=== PATIENT | male | born 1965 | race Caucasian/White ===

== ENCOUNTER → 2016-10-07 | Outpatient (CLI) | payer OTHER ==
[~2016-10-07] MED LIST: FOLI1TAB16 PO; METH2.5T PO; SULF500T7 PO; VITA1TAB3 PO
[2016-10-07 09:24] LABS: ALBUMIN 3.9 g/dL (3.4-5.0); CALCIUM 9.3 mg/dL (8.5-10.1); GFR 78.5; POTASSIUM 4.2 mmol/L (3.5-5.1)
[2016-10-07 09:30] LABS: BASO # 0.1 x10^3/uL (0.0-0.2); BASO % 1 % (0-3); EOS % 3 % (0-3); HEMATOCRIT 44.8 % (39.0-53.0); HEMOGLOBIN 14.9 g/dL (13.0-17.5); LYMPH # 1.2 x10^3/uL (1.0-4.8); LYMPH % 21 % (24-48); MEAN CORPUSCULAR HEMOGLOBIN 30 pg (25-35); MEAN CORPUSCULAR HGB CONC 33 g/dL (31-37); MEAN CORPUSCULAR VOLUME 90 fL (79-100); MONO % 9 % (0-9); NEUT % 65 % (31-73); PLATELET COUNT 166 x10^3/uL (140-400); RED BLOOD COUNT 4.96 x10^6/uL (4.30-5.70); WHITE BLOOD COUNT 5.6 x10^3/uL (4.0-11.0)
[2016-10-07 09:37] LABS: PROTHROMBIN TIME PATIENT 12.8 SEC (11.7-14.0)
[2016-10-07 11:16] LABS: BILIRUBIN,URINE NEGATIVE (NEG); GLUCOSE,URINE NEGATIVE (NEG); NITRITE,URINE NEGATIVE (NEG); PROTEIN,URINE NEGATIVE (NEG-TRACE); UROBILINOGEN,URINE 0.2 mg/dL (0.2 mg/dL)
[2016-10-07 11:45] LABS: BACTERIA,URINE 0 /HPF (0-FEW); RBC,URINE 0 /HPF (0-2); SQUAMOUS EPITHELIAL CELL,UR FEW /LPF; WBC,URINE 0 /HPF (0-4)
--- NOTE | 2016-10-07 12:37 | RAD ---
Chest, 2 views, 10/07/2016: History: Preop evaluation for left hip surgery Comparison is made to a study from 05/01/2016. The heart size and pulmonary vascularity are normal. No pulmonary infiltrates are seen. There is no evidence of pleural fluid. IMPRESSION: No acute cardiopulmonary abnormality is detected.
--- NOTE | 2016-10-07 13:41 | EKG ---
[facility] [address] [place] [address] Test Date: 2016-10-07 Test Time: 11:44:36 Pat Name: RICHY GUTIERREZ Department: Room: Gender: Vertical Borer: IFEOMA : 1965 Requested By: LUKASZ VILLELA Order Number: [id number] Reading MD: Edda Randhawa Measurements Intervals Central Rate: 68 P: RI: QRS: 30 QRSD: 82 T: 58 QT: 400 QTc: 426 Interpretive Statements ATRIAL FIBRILLATION WITH A CONTROLLED VENTRICULAR RESPONSE ABNORMAL EKG RI6.01 No previous ECG available for comparison Electronically Signed On 10-09-2016 10:54:34 CDT by Edda Randhawa
== END | disposition home or self-care (01) ==
LOC: SURGPAT 14:32
PROVIDERS: ATTEND Orthopaedic Surgery
DX: Z01.818 Encounter for other preprocedural examination (principal); M16.12 Unilateral primary osteoarthritis, left hip
CPT/HCPCS: 36415; 71020; 80048; 81001; 82040; 85027; 85610; 85651; 85730; 87641; 93005

== ENCOUNTER → 2016-10-17 | Outpatient (CLI) | payer OTHER ==
[~2016-10-17] VITALS: Ht 180.3 cm; Wt 117.0 kg
[~2016-10-17] MED LIST changes: +CETI10TA22 PO; +REGADENOSON 0.4 MG/5 ML DISP.SYRIN. IV ONE
--- NOTE | 2016-10-17 21:58 | RAD ---
APPROVED REPORT Test Type: Pharmacological Stress Nurse/Tech: Sienna Conley RN Test Indications: pre-op clearance Cardiac History: see ehr Medications: see ehr Medical History: see ehr Resting ECG: SR Resting Heart Rate: 72 bpm Resting Blood Pressure: 153/98mmHg Pretest Chest Pain: None Nurse/Tech Notes Lungs CTA, S1, S2 Consent: The procedure was explained to the patient in lay terms. Informed consent was witnessed. Waqar eout was entered into [employer]. History and Stress Test performed by Naresh DolanNMildred Pharm. Details Pharmacologic stress testing was performed using 0.4mg per 5ml of regadenoson given intravenously ove r 7-10 seconds. Stress Symptoms No chest pain or symptoms. POST EXERCISE Reason for Termination: Infusion complete Max HR: 114 bpm Max Blood Pressure: 163/96mmHg Blood Pressure response to exercise: Normal blood pressure response during stress. Chest Pain: No. Arrhythmia: No. ST Change: No. INTERPRETATION Stress EKG Conclusion: No acute changes were noted. Imaging Protocol IMAGE PROTOCOL: Rest Tc-99m/stress Tc-99m 1 day Rest: Stress: Viability: Radiopharm.Tc99m ShtmmrnpgXl45x Sestamibi Dose11.9mCi 33mCi Duration 15min. 10min. Img Date 10/17/2016 10/17/2016 Inj-Img Ujdd92osm. 75min. Rest Admin Site:IV - Left WristAdministrator:KATHRINE More Stress Admin Site: IV - Left WristAdministrator: RE Addison, ARRT (R)(N) STRESS DATA End Diast. Vol.72.0mlAv. Heart Trgb126.0bpm End Syst. Vol.34.0mlCO Index BSA0.0L/min Myocardial Qure345.0gEject. Voucbcet81.0% Stress Rates Pk. Fill Rate4.52EDV/secLVtime Pk. Fill 123.40msec Pk. Empty Rate4.99ESV/secLVtime Pk. Wufoa737.34msec 07/30 Pk. Fill0.37EDV/sec Stress Scores Regional WT1.00Summed WT12.00 Regional WM0.00Summed WM7.00 LV Perf. Quant 17 Seg. SSS0.00 17 Seg. SRS1.00 17 Seg. SDS0.00 Stress Defect Extent (% LAD)0.00Rest Defect Extent (% LAD)0.00Rev. Defect Extent (% LAD)0.00 Stress Defect Extent (% LCX) 0.00Rest Defect Extent (% LCX)0.00Rev. Defect Extent (% LCX)0.00 Stress Defect Extent (% RCA)0.00Rest Defect Extent (% RCA)0.00Rev. Defect Extent (% RCA)0.00 Stress Defect Extent (% SANTI)0.00Rest Defect Extent (% SANTI)0.00Rev. Defect Extent (% SANTI)0.00 Conclusion 1. No electrocardiographic changes suggestive of myocardial ischemia with pharmacological stress. 2. No perfusion defects to suggest myocardial ischemia or scar 3. Mild diffuse decrease in wall motion and normal wall thickening with an ejection fraction of 53%. 4. Sxan indicates low risk for future cardiac events..
== END | disposition home or self-care (01) ==
LOC: NM 07:55
PROVIDERS: ATTEND Internal Medicine Cardiovascular Disease
DX: Z01.810 Encounter for preprocedural cardiovascular examination (principal); R94.31 Abnormal electrocardiogram [ECG] [EKG]
CPT/HCPCS: 78452; 93017; 96374; 96375; 96376; A9500; J2785

== ENCOUNTER 2016-10-22 05:50 | Inpatient (IN) | payer OTHER ==
[~2016-10-22] VITALS: Ht 180.3 cm; Wt 115.2 kg
[2016-10-22] VITALS (9 sets, daily range): BP systolic 110–148; BP diastolic 72–86
[~2016-10-22 05:50] MED LIST changes: -CETI10TA22 PO; -REGADENOSON 0.4 MG/5 ML DISP.SYRIN. IV ONE
[2016-10-22] MEDS ORDERED: CELECOXIB 200 MG CAPSULE PO PRN (06:00)
[2016-10-22] MEDS ORDERED: HYDROCODONE/APAP 7.5/325MG TABLET. PO PRN (06:00)
[2016-10-22] MEDS ORDERED: CEFAZOLIN 2GM PREMIX 50 ML IV PRN (06:00)
[2016-10-22] MEDS ORDERED: TRANEXAMIC ACID 1,000 MG in IV NS 50ML -- 1ST BAG INJ ONE (06:00)
[2016-10-22] MEDS ORDERED: CETI10TA22 PO (06:42)
[2016-10-22] MEDS ORDERED: FENTANYL PF 100 MCG/2 ML VIAL. IV PRN ×3 (07:00→08:00)
[2016-10-22] MEDS ORDERED: PROCHLORPERAZINE 10 MG/2 ML VIAL. IV PRN ×2 (07:00→08:00)
[2016-10-22] MEDS ORDERED: LIDOCAINE 1% 1 ML SYRINGE. ID PRN (07:00)
[2016-10-22] MEDS ORDERED: HYDROMORPHONE 2 MG/ML VIAL. IV PRN (07:00)
[2016-10-22] MEDS ORDERED: ONDANSETRON PF 4 MG/2 ML VIAL. IV PRN (07:00)
[2016-10-22] MEDS ORDERED: IV RINGERS,LACTATED 1000ML 1,000 ML IV SCH (07:00)
[2016-10-22] MEDS ORDERED: MORPHINE SULFATE 2 MG/ML DISP.SYRIN. IV PRN ×2 (07:00→08:00)
[2016-10-22] MEDS ORDERED: DEXAMETHASONE SOD PHOS 20 MG/5 ML VIAL. ONE (07:09)
[2016-10-22] MEDS ORDERED: LIDOCAINE 2% 100 MG/5 ML DISP.SYRIN. ONE (07:09)
[2016-10-22] MEDS ORDERED: PROPOFOL 20 ML IV ONE (07:09)
[2016-10-22] MEDS ORDERED: FENTANYL PF 100 MCG/2 ML VIAL. ONE (07:09)
[2016-10-22] MEDS ORDERED: ONDANSETRON PF 4 MG/2 ML VIAL. ONE (07:09)
[2016-10-22] MEDS ORDERED: FAMOTIDINE 20 MG/2 ML VIAL ONE (07:09)
[2016-10-22] MEDS ORDERED: ROCURONIUM 50 MG/5 ML VIAL. ONE (07:09)
[2016-10-22 07:16] LABS: PROTHROMBIN TIME PATIENT 12.8 SEC (11.7-14.0)
[2016-10-22] MEDS ORDERED: SUCCINYLCHOLINE 200 MG/10 ML VIAL. ONE (07:36)
[2016-10-22] MEDS ORDERED: MORPHINE SULFATE 10 MG/ML VIAL. ONE (07:51)
[2016-10-22] MEDS ORDERED: 0.9 % SODIUM CHLORIDE 50 ML VIAL. IJ ONE ×2 (07:53→08:36)
[2016-10-22] MEDS: TV=100ml MORPHINE 5 MG, KETOROLAC 30 MG, ROPIVacaine 0.5% PF 60 ML, EPINEPH... INT ART ONE ×10 (07:57→08:06)
[2016-10-22] MEDS ORDERED: OXYCODONE/APAP 7.5/325 TABLET. PO PRN (08:00)
[2016-10-22] MEDS: FERROUS SULFATE 325 MG TABLET PO SCH ×2 (08:00→16:54)
[2016-10-22] MEDS ORDERED: ACETAMINOPHEN 325 MG TABLET. PO PRN (08:00)
[2016-10-22] MEDS ORDERED: MORPHINE SULFATE 10 MG/ML VIAL. IV PRN (08:00)
[2016-10-22] MEDS ORDERED: DIPHENHYDRAMINE 50 MG/ML VIAL IV PRN (08:00)
[2016-10-22] MEDS ORDERED: OXYCODONE/APAP 5/325 TABLET. PO PRN (08:00)
[2016-10-22] MEDS ORDERED: ZOLPIDEM 5 MG TABLET. PO PRN (08:00)
[2016-10-22] MEDS ORDERED: TRAMADOL 50 MG TABLET. PO PRN ×2 (08:00)
[2016-10-22] MEDS ORDERED: CALCIUM CARBONATE 500 MG TAB.CHEW PO PRN (08:00)
[2016-10-22] MEDS ORDERED: TRANEXAMIC ACID 1,000 MG in IV NS 50ML -- 2ND BAG INJ ONE (08:00)
[2016-10-22] MEDS ORDERED: DEXTROSE 50% 25 GM / 50ML DISP.SYRIN. IV PRN (08:00)
[2016-10-22] MEDS ORDERED: MORPHINE SULFATE 4 MG/ML DISP.SYRIN. IV PRN ×2 (08:00)
[2016-10-22] MEDS ORDERED: 0.9 % SODIUM CHLORIDE 10 ML DISP.SYRIN. IV PRN (08:00)
--- NOTE | 2016-10-22 08:28 | HP ---
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 HISTORY OF PRESENT ILLNESS: The patient has a longstanding history of left hip pain and leg length discrepancy ever since childhood. He has compensated well up to about 5 years ago when he was diagnosed with rheumatoid arthritis. He reports about a 70-pound weight gain between that diagnosis and the present time. Initially it was poorly controlled, but more recently had a little better response based on clinical results and blood work. 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 He says the left hip hurts him very severely, worse on startup, better once he gets going for a little bit, worse with more extended activity, aching afterward. PAST MEDICAL HISTORY: Significant for rheumatoid arthritis and DJD. PAST SURGICAL HISTORY: Significant for a biceps tendon repair, carpal tunnel surgery, appendectomy, thumb surgery, and elbow nerve translocation. FAMILY HISTORY: Denies any significant family history. SOCIAL HISTORY: Denies smoking. Very occasional alcohol use. Denies drug use. MEDICATIONS: Include methotrexate, folic acid, Sulfazine. ALLERGIES: He has no known drug allergies. REVIEW OF SYSTEMS: Denies chest pain, fever, chills, radiating pain, focal weakness, numbness, tingling, visual changes, change in bowel or bladder function. PHYSICAL EXAMINATION: VITAL SIGNS: Per his admission sheet. HEENT: Atraumatic, normocephalic. HEART: Regular rate and rhythm. LUNGS: Clear to auscultation bilaterally. ABDOMEN: Benign. EXTREMITIES: Examination of the left hip reveals a short leg length about an inch. Pain on any range of motion especially on extremes. No instability present. He has normal motion of the contralateral hip, bilateral knees and ankles, with intact motor function, distal pulses, sensation, reflexes, skin in both upper extremities throughout. IMAGING: X-rays show hip dysplasia on the left with severe degenerative changes. ASSESSMENT: 1. Left hip pain. 2. Congenital dysplasia, left hip. 3. Left hip degenerative and rheumatoid arthritis. 4. Rheumatoid arthritis. 5. BMI 35 history. TREATMENT PLAN: We had talked previously about his operative and nonoperative treatment options, a cane for support. His symptoms really in severity are beyond that. He is unable to tolerate narcotic pain medications which give him stomach upset and constipation and he would rather have the problem fixed to go on with his business and active lifestyle. We talked through risks, benefits, postoperative course of total hip arthroplasty including the possibility of continued leg length discrepancy, nerve or blood vessel damage, particularly symptoms due to stretch of the sciatic nerve if we lengthened his leg significantly; possibility of instability, infection, premature wear or loosening, medical or other anesthetic complications including blood clots among others. All his questions were answered. Consent was obtained and he agrees to proceed with total hip arthroplasty with [facility] admission to follow. LUKASZ VILLELA MD DR: GRACIELA/terrell JOB#: [id number] / [id number]
[2016-10-22] MEDS ORDERED: PHENYLEPHRINE in 0.9% NACL PF 1 MG/10 ML DISP.SYRIN. IV ONE (08:37)
[2016-10-22] MEDS ORDERED: SEVOFLURANE > 120 MINUTES. IH ONE (08:48)
[2016-10-22] MEDS ORDERED: VECURONIUM BOLUS 10 MG VIAL. IV ONE (08:59)
[2016-10-22] MEDS: SENNOSIDES/DOCUSATE 8.6/50MG TABLET. PO SCH (09:00)
[2016-10-22] MEDS: FOLIC ACID 1 MG TABLET PO SCH (09:00)
[2016-10-22] MEDS: MULTIVITAMIN with MINERAL TABLET. PO SCH (09:00)
[2016-10-22] MEDS ORDERED: NEOSTIGMINE METHYLSULFATE 5 MG/5 ML SYRINGE. ONE (09:49)
[2016-10-22] MEDS ORDERED: GLYCOPYRROLATE 1 MG/5 ML VIAL. ONE (09:49)
--- NOTE | 2016-10-22 10:19 | RAD ---
EXAM: Left hip, 2 views. HISTORY: Arthroplasty. COMPARISON: 08/26/2016. FINDINGS: 2 views of the left hip are obtained. There is a left hip arthroplasty in expected position. There is shunting soft tissue gas due to recent surgery. IMPRESSION: Left hip arthroplasty in expected position.
--- NOTE | 2016-10-22 10:30 | PDOC ---
BRIEF OPERATIVE NOTE Date: Oct 22, 2016 Pre-Op Diagnosis djd and congenital deformity left hip Post-Op Diagnosis same Procedure Performed left total hip arthroplasty Surgeon Artur Anesthesia Type: General Blood Loss 150cc Specimens Obtained femoral head to pathology Findings above Complications none LUKASZ VILLELA MD Oct 22, 2016 10:30
[2016-10-22] MEDS: FENTANYL PF 100 MCG/2 ML VIAL. IV PRN ×2 (10:53→11:06)
--- NOTE | 2016-10-22 11:12 | RAD ---
Pelvis with left hip, 2 views, 10/22/2016: History: Postop evaluation Views of the lower pelvis and left hip were obtained in 2 projections. A left hip prosthesis is now in place and appears to be in satisfactory position. A surgical drain overlies the operative site. There is no evidence of a retained surgical instrument, needle or radiopaque sponge on these views. IMPRESSION: No significant postoperative abnormality is detected.
--- NOTE | 2016-10-22 14:04 | OP ---
DATE OF SURGERY: 10/22/2016 PREOPERATIVE DIAGNOSES: Degenerative joint disease of left hip and congenital dysplasia of left hip. POSTOPERATIVE DIAGNOSES: Degenerative joint disease of left hip and congenital dysplasia of left hip. PROCEDURE: Left total hip arthroplasty. SURGEON: Ishan Siddiqui MD. DETECTIVE BUREAU CHIEF: [employer]. ANESTHESIA: General. ESTIMATED BLOOD LOSS: 150 mL. COMPLICATIONS: None. FINDINGS: Include severe wear of the femoral head, it was essentially mushroom in shape. Femoral head was sent to pathology for evaluation. OPERATIVE INDICATIONS: The patient is a 51-year-old male with congenital dysplasia of his hip and a leg length discrepancy, longstanding in nature, of about an inch. He stated that that was tolerated better until he developed more rheumatoid arthritis symptoms within the last several years and has been very limited in his activities of daily living as described in his preoperative history and physical included in the previous clinic notes. I had gone over with him additional nonoperative and operative treatment measures as well as risks, benefits, postoperative course of the procedure of total hip arthroplasty including the possibility of infection, nerve or blood vessel damage, premature wear or loosening, medical or other anesthetic complications among others. All his questions were answered. He wants to proceed with surgical evaluation and treatment. DESCRIPTION OF PROCEDURE: The patient was identified, procedure verified, patient placed in the supine position on the operating table. After adequate amounts of general endotracheal anesthesia were administered, he was placed in the decubitus position, left side up. All bony prominences were well padded and he was positioned using the Stulberg hip positioner. After timeout was performed, the patient and procedure identified and verified. The posterior approach was carried out to the left hip with a curvilinear incision centered over the greater trochanter down to the iliotibial band and gluteal fascia, both of which were split in line with their fibers. A reference pin was placed in the pelvis to measure offset and leg length. The Charnley retractor was then placed. The external rotators were detached at their insertion and hip capsule was split in a T-fashion and the hip was dislocated. Femoral head was very deformed, devoid of any cartilage. It was shaped more like a mushroom than a ball and very large, it actually measured about 68 at its greatest diameter. Acetabulum was then exposed. Any remaining labral tissue was excised and the acetabulum was very flat, narrow and dysplastic. Reaming was carried out starting at a size 48, working up, and my main concern was preserving the anterior and posterior wall, which were well preserved, reaming up to a size 60. There was a small superior lip remaining, but did not want to go further with the compromise of the posterior wall. Reaming was carried out to the inner shelf of the acetabulum initially and increased. A Continuum acetabular shell, size 62, was then placed in proper position and version based on his anatomy with a standard trial 40 mm liner after a 30-mm screw was placed superiorly with an excellent bite. Next, attention was turned to the femur where the femoral head had been cut at the calcar with a size 5 Avenir broach for reference, which had been templated preoperatively. Excess cement was removed laterally to optimize position and broaching was carried out through a size 5, which was found to have excellent fit and stability. Initially a -3.5 trial head was used, but with a +0 head, I was actually able to restore his leg length almost completely with excellent stability to about 90 degrees of flexion with about 65-70 degrees of internal rotation before dislocation. Offset was maintained, leg length increased by a little over 2 cm per the reference guide. An AP pelvis was shot as well for reference, just to verify positioning and placement and leg lengths, nearly equal on that intraoperative film. Trial components were removed. Thorough irrigation carried out with normal saline solution. A vitamin E 40 mm inner diameter standard liner was impacted into place. A 5 standard Avenir stem likewise impacted into place and set to equivalent where the broach was as expected. A +0 ceramic 40 mm head was impacted in place to engage the Alarcon taper and was reduced with equivalent stability as described above. Thorough irrigation again carried out with normal saline solution. External rotators were reattached. Hip capsule was repaired with #5 Ethibond suture. Hemovac drain and pain catheter were placed. The tissues were infused with pain catheter mixture. The fascia was closed with #5 Ethibond in interrupted fashion, reinforced with #1 Vicryl in a running fashion. Subcutaneous closure with layered Vicryl suture and subcuticular closure with Monocryl suture. Steri-Strips and Mastisol, sterile dressings were applied. The patient was extubated and transferred to postop holding in stable condition having tolerated the procedure well. Please note that Jodi Jones, [employer], was present for the procedure and assisted in the prep and drape exposure and the subcutaneous and subcuticular portion of the closure. ISHAN SIDDIQUI MD DR: GRACIELA/terrell JOB#: [id number] / [id number]
[2016-10-22] MEDS: IV DEXTROSE 5 %-0.45 % NACL 1,000 ML IV SCH ×2 (14:05→22:00)
[2016-10-22] MEDS: CEFAZOLIN 2GM PREMIX 50 ML IV SCH ×2 (14:07→20:00)
[2016-10-22] MEDS ORDERED: WARFARIN 7.5 MG TABLET. PO ONE (16:00)
[2016-10-22] MEDS: KETOROLAC TROMETHAMINE 30 MG, BUPIVACAINE MPF 0.25% 20 ML, EPINEPHRINE 0.5 MG in TOTAL ... INT ART SCH (17:55)
[2016-10-22] MEDS: SULFASALAZINE 500 MG TABLET PO SCH (21:01)
[2016-10-22] MEDS: HYDROCODONE/APAP 7.5/325MG TABLET. PO PRN (21:01)
[2016-10-22] MEDS: CELECOXIB 200 MG CAPSULE PO SCH (21:01)
[2016-10-23] MEDS: CEFAZOLIN 2GM PREMIX 50 ML IV SCH (02:00)
[2016-10-23 02:52] VITALS: BP 119/72
[2016-10-23 05:27] LABS: HEMATOCRIT 35.2 % (39.0-53.0); HEMOGLOBIN 11.4 g/dL (13.0-17.5); RED BLOOD COUNT 3.85 x10^6/uL (4.30-5.70)
[2016-10-23 05:58] LABS: INR 1.3 (0.8-1.1); PROTHROMBIN TIME PATIENT 15.4 SEC (11.7-14.0)
[2016-10-23] MEDS: KETOROLAC TROMETHAMINE 30 MG, BUPIVACAINE MPF 0.25% 20 ML, EPINEPHRINE 0.5 MG in TOTAL ... INT ART SCH (06:00)
[2016-10-23] MEDS ORDERED: MAGNESIUM HYDROXIDE 2,400 MG/30 ML ORAL.SUSP. PO PRN (06:00)
[2016-10-23 06:13] VITALS: BP 128/77
[2016-10-23] MEDS: IV DEXTROSE 5 %-0.45 % NACL 1,000 ML IV SCH ×2 (08:00→18:00)
[2016-10-23] MEDS: SENNOSIDES/DOCUSATE 8.6/50MG TABLET. PO SCH (08:50)
[2016-10-23] MEDS: CELECOXIB 200 MG CAPSULE PO SCH ×2 (08:50→20:56)
[2016-10-23] MEDS: HYDROCODONE/APAP 7.5/325MG TABLET. PO PRN ×2 (08:50→12:22)
[2016-10-23] MEDS: FOLIC ACID 1 MG TABLET PO SCH (08:50)
[2016-10-23] MEDS: FERROUS SULFATE 325 MG TABLET PO SCH ×2 (08:51→16:59)
[2016-10-23] MEDS: MULTIVITAMIN with MINERAL TABLET. PO SCH (08:51)
[2016-10-23] MEDS: SULFASALAZINE 500 MG TABLET PO SCH ×2 (08:52→20:56)
[2016-10-23] MEDS ORDERED: BISACODYL 10 MG SUPP.RECT. PR PRN (16:00)
[2016-10-23] MEDS ORDERED: WARFARIN 4 MG TABLET. PO ONE (16:00)
[2016-10-23] MEDS: HYDROCODONE/APAP 10/325 TABLET. PO PRN ×2 (16:58→20:57)
--- NOTE | 2016-10-23 17:41 | PDOC ---
PROGRESS NOTES Subjective Subjective Problems overnight: Patient feels excellent minimal pain well-controlled very pleased with his ability to get up and around no complaints Objective Vital Signs Vital Signs Date Time Temp Pulse Resp B/P Pulse Ox O2 Delivery O2 Flow Rate FiO2 10/23/16 16:58 96 Room Air 10/23/16 12:22 2.0 10/23/16 06:13 98.3 73 18 128/77 98.3 Physical Exam On exam leg lengths are clinically equal distal neurovascular status intact he has excellent range of motion Labs Laboratory Tests Test 10/22/16 06:35 10/23/16 04:48 Prothrombin Time 12.8SEC (11.7-14.0) 15.4SEC (11.7-14.0) Prothromb Time International Ratio 1.0 (0.8-1.1) 1.3 (0.8-1.1) Activated Partial Thromboplast Time 34SEC (24-38) White Blood Count 12.0x10^3/uL (4.0-11.0) Red Blood Count 3.85x10^6/uL (4.30-5.70) Hemoglobin 11.4g/dL (13.0-17.5) Hematocrit 35.2% (39.0-53.0) Mean Corpuscular Volume 92fL (79-100) Mean Corpuscular Hemoglobin 30pg (25-35) Mean Corpuscular Hemoglobin Concent 32g/dL (31-37) Red Cell Distribution Width 15.0% (11.5-14.5) Platelet Count 134x10^3/uL (140-400) Laboratory Tests Test 10/23/16 04:48 White Blood Count 12.0x10^3/uL (4.0-11.0) Red Blood Count 3.85x10^6/uL (4.30-5.70) Hemoglobin 11.4g/dL (13.0-17.5) Hematocrit 35.2% (39.0-53.0) Mean Corpuscular Volume 92fL (79-100) Mean Corpuscular Hemoglobin 30pg (25-35) Mean Corpuscular Hemoglobin Concent 32g/dL (31-37) Red Cell Distribution Width 15.0% (11.5-14.5) Platelet Count 134x10^3/uL (140-400) Prothrombin Time 15.4SEC (11.7-14.0) Prothromb Time International Ratio 1.3 (0.8-1.1) Imaging Postop x-rays show excellent positioning of the total hip arthroplasty with essentially equal leg lengths Assessment Assessment POD# [1], S/P [total hip arthroplasty] Problems: Plan Plan of Care Continue mobilize with physical therapy weightbearing as tolerated standard total hip precautions He's doing extremely well I did give him an option of possible early discharge tomorrow if desired and is physical therapy continues to go well Likely outpatient physical therapy on discharge LUKASZ VILLELA MD Oct 23, 2016 17:41
[2016-10-23 18:21] VITALS: BP 132/82
[2016-10-24] MEDS: IV DEXTROSE 5 %-0.45 % NACL 1,000 ML IV SCH (04:00)
[2016-10-24 05:11] LABS: HEMATOCRIT 33.8 % (39.0-53.0); HEMOGLOBIN 11.2 g/dL (13.0-17.5)
[2016-10-24 05:22] LABS: INR 1.5 (0.8-1.1); PROTHROMBIN TIME PATIENT 17.3 SEC (11.7-14.0)
[2016-10-24] MEDS ORDERED: FENTANYL PF 100 MCG/2 ML VIAL. IV PRN ×2 (05:33)
[2016-10-24] MEDS ORDERED: ACETAMINOPHEN 325 MG TABLET. PO PRN (05:34)
[2016-10-24 05:45] VITALS: BP 129/73
[2016-10-24] MEDS: FERROUS SULFATE 325 MG TABLET PO SCH ×2 (08:02→16:37)
[2016-10-24] MEDS: SULFASALAZINE 500 MG TABLET PO SCH ×2 (08:03→20:18)
[2016-10-24] MEDS: SENNOSIDES/DOCUSATE 8.6/50MG TABLET. PO SCH (08:03)
[2016-10-24] MEDS: CELECOXIB 200 MG CAPSULE PO SCH ×2 (08:03→20:18)
[2016-10-24] MEDS: FOLIC ACID 1 MG TABLET PO SCH (08:03)
[2016-10-24] MEDS: MULTIVITAMIN with MINERAL TABLET. PO SCH (08:04)
[2016-10-24] MEDS: HYDROCODONE/APAP 7.5/325MG TABLET. PO PRN ×3 (08:04→16:37)
[2016-10-24] MEDS ORDERED: CELECOXIB 200 MG CAPSULE. ONE ×2 (08:12→19:09)
--- NOTE | 2016-10-24 12:53 | PATHOLOGY ---
PATHOLOGY REPORT * * * * * * * * FINAL DIAGNOSIS: "Left hip bone and tissue", removal: - Degenerative osteoarthritis. - Bone marrow with focal trilineage hematopoiesis. (SKM:swati; d/t: 10/24/2016) REPORT ELECTRONICALLY SIGNED BY: Alycia Gamboa M.D. DATE/TIME: 10/24/2016 12:51 * * * * * * * * GROSS PATHOLOGY: Received in formalin labeled "Richy Alcocer left hip bone and tissue," is a femoral head measuring 6.6 x 6.5 x 3.5 cm in greatest dimensions. The articular surface is light gay and smooth to granular in appearance with severe osteophytic lipping, however, eburnation is not grossly identified. Sectioning the bone reveals light gay cut surfaces. Also received within the specimen container are additional fragments of light gay bone admixed with soft tissue measuring 8.6 x 7.9 x 2.9 cm in aggregate dimensions. Equipment Service Associate tissue is submitted in cassette A1, following decalcification. (CAA; 10/23/2016) INITIAL CPT CODE(S): A; 01670, 48609 Professional services [place] [address] Technical services performed by [facility] at [address] [place] [address]. SPECIMEN(S) RECEIVED: A.Left hip bone and tissue CLINICAL HISTORY: Left hip dysplasia and DJD PATIENT: RICHY ALCOCER /AGE: 12 1965 (Age: 51) PATIENT #: [id number] ALT CASE #: SPECIMEN COLLECTION DATE: 10/22/2016 SPECIMEN RECEIVED DATE: 10/22/2016 [facility] - [address] [place] [address] - PHONE: [phone] * * * END OF REPORT * * *
[2016-10-24] MEDS ORDERED: BISACODYL 10 MG SUPP.RECT. PR PRN (14:30)
[2016-10-24] MEDS ORDERED: MAGNESIUM HYDROXIDE 2,400 MG/30 ML ORAL.SUSP. PO PRN (14:30)
--- NOTE | 2016-10-24 15:27 | PDOC ---
ORTHO PROGRESS NOTES Subjective Erick is doing well. Pain controlled. Complains of some constipation. Doing well with therapy. Denies chest pain, shortness of breath or numbness and tingling Post-op Day: 2 (Left SANDRA) Vitals Vital Signs Date Time Temp Pulse Resp B/P Pulse Ox O2 Delivery O2 Flow Rate FiO2 10/24/16 08:20 Room Air 10/24/16 05:45 98.5 75 20 129/73 94 98.5 10/23/16 12:22 2.0 Labs Laboratory Tests Test 10/23/16 04:48 10/24/16 05:00 White Blood Count 12.0x10^3/uL (4.0-11.0) Red Blood Count 3.85x10^6/uL (4.30-5.70) Hemoglobin 11.4g/dL (13.0-17.5) 11.2g/dL (13.0-17.5) Hematocrit 35.2% (39.0-53.0) 33.8% (39.0-53.0) Mean Corpuscular Volume 92fL (79-100) Mean Corpuscular Hemoglobin 30pg (25-35) Mean Corpuscular Hemoglobin Concent 32g/dL (31-37) 33g/dL (31-37) Red Cell Distribution Width 15.0% (11.5-14.5) Platelet Count 134x10^3/uL (140-400) Prothrombin Time 15.4SEC (11.7-14.0) 17.3SEC (11.7-14.0) Prothromb Time International Ratio 1.3 (0.8-1.1) 1.5 (0.8-1.1) Laboratory Tests Test 10/24/16 05:00 Hemoglobin 11.2g/dL (13.0-17.5) Hematocrit 33.8% (39.0-53.0) Mean Corpuscular Hemoglobin Concent 33g/dL (31-37) Prothrombin Time 17.3SEC (11.7-14.0) Prothromb Time International Ratio 1.5 (0.8-1.1) Notes Patient is awake alert sitting up in chair. Breathing unlabored, no acute distress. Incision covered with dressing, no drainage. Mild edema. Neurovascular intact bilateral lower extremity Problems: (1) Degenerative joint disease of left hip Assessment and Plan Continue PT OT, weightbearing as tolerated Anticoagulation per pharmacy Pain controlled Anticipate discharge tomorrow Problem Qualifiers (1) Degenerative joint disease of left hip: Osteoarthritis type: primary Qualified Code: M16.12 - Unilateral primary osteoarthritis, left hip BAKARI SANTOS APRN Oct 24, 2016 15:27
[2016-10-24] MEDS ORDERED: WARFARIN 3 MG TABLET. PO ONE (16:00)
[2016-10-24 19:24] VITALS: BP 130/79
[2016-10-25] MEDS ORDERED: DIPHENHYDRAMINE 50 MG/ML VIAL. IV PRN (05:31)
[2016-10-25 05:47] LABS: INR 1.5 (0.8-1.1); PROTHROMBIN TIME PATIENT 17.1 SEC (11.7-14.0)
[2016-10-25 06:41] VITALS: BP 113/79
[2016-10-25] MEDS: FERROUS SULFATE 325 MG TABLET PO SCH (08:00)
[2016-10-25] MEDS ORDERED: FOLIC ACID 1 MG TABLET. ONE (08:17)
[2016-10-25] MEDS: SULFASALAZINE 500 MG TABLET PO SCH (08:20)
[2016-10-25] MEDS: HYDROCODONE/APAP 7.5/325MG TABLET. PO PRN (08:21)
[2016-10-25] MEDS: FOLIC ACID 1 MG TABLET PO SCH (08:21)
[2016-10-25] MEDS: SENNOSIDES/DOCUSATE 8.6/50MG TABLET. PO SCH (08:21)
[2016-10-25] MEDS: MULTIVITAMIN with MINERAL TABLET. PO SCH (08:23)
[2016-10-25] MEDS ORDERED: CELECOXIB 200 MG CAPSULE. PO SCH (09:00)
[2016-10-25 09:14] LABS: HEMATOCRIT 33.3 % (39.0-53.0); HEMOGLOBIN 10.9 g/dL (13.0-17.5)
[2016-10-25] MEDS ORDERED: WARFARIN 5 MG TABLET. PO ONE (14:00)
[2016-10-25] MEDS ORDERED: FERR-26 PO (15:44)
[2016-10-25] MEDS ORDERED: HYDR-2762 PO (15:45)
[2016-10-25] MEDS ORDERED: WARF5TAB7 PO (15:46)
[2016-10-25 16:20] VITALS: BP 146/88
--- NOTE | 2016-10-26 16:50 | DS ---
DATE OF DISCHARGE: 10/25/2016 PRINCIPAL DIAGNOSIS: Left hip DJD and dysplasia. DISCHARGE MEDICATIONS: Include [place] 7.5/325 one p.o. q. 6 hours p.r.n. pain, Coumadin as directed by anticoagulation clinic, resume home medications. ACTIVITY: Weightbearing as tolerated. Standard total hip precautions. Keep incision clean and dry, may shower as long as dressing is intact. Follow up with Dr. Siddiqui in 2 weeks. BRIEF DESCRIPTION OF HOSPITAL COURSE: The patient underwent an uncomplicated left total hip arthroplasty. Despite equalizing his leg lengths, no neurologic complications or paresthesia or weakness whatsoever. He actually got up and around well with physical therapy postop day #0 and #1. He was a bit more sore on postop day #2 as expected. Vital signs and laboratory exams remained good with a hemoglobin of 11. He was performing his activities of daily living well, pain well controlled, and on postop day #3 was discharged to home with planned outpatient physical therapy. LUKASZ SIDDIQUI MD DR: GRACIELA/terrell JOB#: [id number] / [id number]
[2016-10-27] MEDS ORDERED: METHOTREXATE SODIUM 2.5 MG TABLET PO SCH (16:00)
== END 2016-10-25 16:30 | disposition home or self-care (01) | DRG 470 ==
LOC: OPSVCIP 05:50 → OBSVTOIN 07:57 → 4 SOUTHEST 11:45
PROVIDERS: ADMIT Orthopaedic Surgery; ATTEND Orthopaedic Surgery
PROC: 0SRB039 Replacement of Left Hip Joint with Ceramic Synthetic Substitute, Cemented, Open Approach (ICD-10-PCS; principal; 2016-10-22 07:30)
DX: M16.12 Unilateral primary osteoarthritis, left hip (principal); M06.9 Rheumatoid arthritis, unspecified; K59.00 Constipation, unspecified; Q65.89 Other specified congenital deformities of hip; Z68.35 Body mass index [BMI] 35.0-35.9, adult
CPT/HCPCS: 36415; 73501; 85014; 85018; 85027; 85610; 85730; 86850; 86900; 86901; G0378; G0379; J0171; J0330; J0690; J0780; J1100; J1885; J2270; J2370; J2405; J2704; J2710; J2795; J3010; J3490; J7030; J7120; S0028; 97116; 97150; 97530; 97535

== ENCOUNTER 2018-03-10 08:29 | Day surgery (SDC) | payer OTHER ==
[~2018-03-10] VITALS: Ht 180.3 cm; Wt 108.0 kg
[~2018-03-10 08:29] MED LIST changes: +BUPIVACAINE MPF 0.25% 30 ML VIAL. ONE; +CETI10TA22 PO; +FERR325T14 PO; +HYDR-2762 PO; +IV RINGERS,LACTATED 1000ML 1,000 ML IV SCH; +LIDOCAINE 1% PF 2 ML VIAL. ID PRN; +LISI1TAB5 PO; +ONDANSETRON PF 4 MG/2 ML VIAL. IV PRN; +PROCHLORPERAZINE 10 MG/2 ML VIAL. IV PRN; +WARF-31 PO; +fentaNYL PF VIAL 100 MCG/2 ML VIAL IV PRN
[2018-03-10] MEDS ORDERED: fentaNYL PF VIAL 100 MCG/2 ML VIAL ONE (09:31)
[2018-03-10] MEDS ORDERED: PROPOFOL 20 ML IV ONE (09:31)
[2018-03-10] MEDS ORDERED: ONDANSETRON PF 4 MG/2 ML VIAL. ONE (09:31)
[2018-03-10] MEDS ORDERED: LIDOCAINE 2% PF Vial for OR 5 ML VIAL. ONE (09:32)
[2018-03-10] MEDS ORDERED: MIDAZOLAM HCL/PF 2 MG/2 ML VIAL. ONE (09:32)
--- NOTE | 2018-03-10 10:00 | DISCH ---
DISCHARGE INSTRUCTIONS Condition on Discharge Condition on Discharge: Stable Activity After Discharge Activity Instructions for Disc: Other, see below (avoid hard grasp with right hand) Diet after Discharge Diet after Discharge: Regular Wound Incision Care Wound/Incision Care: Keep wound elevated, Do not change dressing (keep dressing clean and dry) Contacting the [facility] after DC Call your doctor for: Concerns you may have Follow-Up Follow up with: Artur 10 days LUKASZ VILLELA MD Mar 10, 2018 10:00
[2018-03-10] MEDS ORDERED: HYDR-971 PO (10:01)
[2018-03-10] MEDS ORDERED: HYDROcodone/APAP 5/325MG 1 TAB TABLET PO ONE (10:45)
[2018-03-10 11:14] VITALS: BP 122/74
--- NOTE | 2018-03-10 15:43 | PDOC4 ---
Operative Note Operative Note Date of surgery: 03/10/2018 Preoperative diagnosis: Right carpal tunnel syndrome Postoperative diagnosis: Same with severe median nerve compression at the carpal tunnel Surgeon: Artur Anesthesia: Local with deep sedation Estimated blood loss: None Complications: None Operative indications: Mr. Alcocer is very pleased with the results of his carpal tunnel release on the contralateral wrist and has severe limitations on his dominant right hand. 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 Median nerve compression was confirmed by EMG we had talked about the possibility of carpal tunnel release and the risks benefits postoperative course of the procedure including the possibility that the nerve may not come back completely or may take a long time to come back to the extent that it will. He is aware of this issue and wishes to proceed with surgical evaluation and treatment. Operative text: Patient was identified procedure verified patient placed in the supine position on the operative table. After adequate amounts of sedation were obtained tourniquet was placed on the right upper extremity and the right upper extremity was prepped and draped in standard sterile fashion after timeout was performed patient procedure identified and verified the extremity was exsanguinated by Esmarch bandage tourniquet inflated to 250 mmHg and a longitudinal incision was made just distal to the distal palmar crease. Dissection was carried out down to the transverse carpal ligament which was divided under direct visualization insuring complete release proximally and distally both visually and palpably. Median nerve was noted to have severe compression there was no synovitis or tendon damage in the carpal tunnel skin closure was then accomplished with nylon suture in a vertical mattress fashion sterile dressings were applied patient was returned to recovery room in stable condition having tolerated procedure well fingers were noted be warm pink following deflation of tourniquet LUKASZ VILLELA MD Mar 10, 2018 15:43
== END 2018-03-10 11:14 | disposition home or self-care (01) ==
LOC: SURG 08:29
PROVIDERS: ATTEND Orthopaedic Surgery
DX: G56.01 Carpal tunnel syndrome, right upper limb (principal); Z88.5 Allergy status to narcotic agent; I10 Essential (primary) hypertension; Z90.49 Acquired absence of other specified parts of digestive tract; E66.9 Obesity, unspecified; Z68.33 Body mass index [BMI] 33.0-33.9, adult; Z98.52 Vasectomy status; M06.9 Rheumatoid arthritis, unspecified; Z98.890 Other specified postprocedural states; Z96.642 Presence of left artificial hip joint; Z72.89 Other problems related to lifestyle; Z87.891 Personal history of nicotine dependence; M19.90 Unspecified osteoarthritis, unspecified site; Z82.5 Family history of asthma and other chronic lower respiratory diseases; Z82.49 Family history of ischemic heart disease and other diseases of the circulatory system
CPT/HCPCS: 64721; J0690; J2001; J2250; J2405; J2704; J3010; J3490

== ENCOUNTER 2018-04-28 14:42 | Emergency (ER) | payer OTHER ==
[~2018-04-28] VITALS: Ht 180.3 cm; Wt 111.1 kg
[~2018-04-28 14:42] MED LIST changes: -BUPIVACAINE MPF 0.25% 30 ML VIAL. ONE; +HYDR-971 PO; -IV RINGERS,LACTATED 1000ML 1,000 ML IV SCH; -LIDOCAINE 1% PF 2 ML VIAL. ID PRN; -ONDANSETRON PF 4 MG/2 ML VIAL. IV PRN; -PROCHLORPERAZINE 10 MG/2 ML VIAL. IV PRN; -fentaNYL PF VIAL 100 MCG/2 ML VIAL IV PRN
--- NOTE | 2018-04-28 16:03 | PHYS DOC ---
Adult General Chief Complaint Chief Complaint: LOWER EXTREMITY EDEMA HPI HPI Patient is a 52 year old M who presents with right knee pain, swelling and warmth to touch. Patient reports about 2 weeks ago, his knee was hot, red and swollen. He went to PCP office and was thought to have cellulitis. He completed ten days of doxycycline yesterday. He reports the knee is getting hot and swollen again. He denies fever or chills over the last 2-3 days. Review of Systems Review of Systems Constitutional: Denies fever or chills [] Respiratory: Denies cough or shortness of breath [] Cardiovascular: No additional information not addressed in HPI [] GI: Denies abdominal pain, nausea, vomiting Musculoskeletal: Reports right knee pain and swelling Integument: Warmth over right knee Neurologic: Denies headache, focal weakness or sensory changes [] All other systems were reviewed and found to be within normal limits, except as documented in this note. Allergies Allergies Allergies Coded Allergies Type Severity Reaction Last Updated Verified codeine Adverse Reaction Intermediate UPSET STOMACH BADLY 03/10/18 Yes Physical Exam Physical Exam Constitutional: Well developed, well nourished, no acute distress, non-toxic appearance. [] HENT: Normocephalic, atraumatic Eyes: PERRLA, EOMI, conjunctiva normal, no discharge. [] Neck: Normal range of motion, no tenderness, supple, no stridor. [] Cardiovascular:Heart rate regular rhythm, no murmur [] Lungs & Thorax: Bilateral breath sounds clear to auscultation [] Abdomen: Bowel sounds normal, soft, no tenderness Skin: Warm, dry, no erythema, no rash. Warmth over the right anterior knee, no erythema[] Extremities: Tenderness and swelling to the right knee, limited ROM d/t pain Neurologic: Alert and oriented X 3, normal motor function, normal sensory function, no focal deficits noted. [] Psychologic: Affect normal, judgement normal, mood normal. [] Current Patient Data Vital Signs Vital Signs Date Time Temp Pulse Resp B/P (MAP) Pulse Ox O2 Delivery O2 Flow Rate FiO2 04/28/18 15:30 97.8 70 12 144/87 (106) 99 Room Air 97.8 Lab Values Laboratory Tests Test 04/28/18 15:55 White Blood Count 7.9 x10^3/uL (4.0-11.0) Red Blood Count 4.56 x10^6/uL (4.30-5.70) Hemoglobin 14.0 g/dL (13.0-17.5) Hematocrit 41.8 % (39.0-53.0) Mean Corpuscular Volume 92 fL (79-100) Mean Corpuscular Hemoglobin 31 pg (25-35) Mean Corpuscular Hemoglobin Concent 34 g/dL (31-37) Red Cell Distribution Width 14.6 % (11.5-14.5) H Platelet Count 228 x10^3/uL (140-400) Neutrophils (%) (Auto) 64 % (31-73) Lymphocytes (%) (Auto) 21 % (24-48) L Monocytes (%) (Auto) 11 % (0-9) H Eosinophils (%) (Auto) 3 % (0-3) Basophils (%) (Auto) 1 % (0-3) Neutrophils # (Auto) 5.1 x10^3uL (1.8-7.7) Lymphocytes # (Auto) 1.6 x10^3/uL (1.0-4.8) Monocytes # (Auto) 0.9 x10^3/uL (0.0-1.1) Eosinophils # (Auto) 0.2 x10^3/uL (0.0-0.7) Basophils # (Auto) 0.1 x10^3/uL (0.0-0.2) Sodium Level 143 mmol/L (136-145) Potassium Level 4.0 mmol/L (3.5-5.1) Chloride Level 104 mmol/L (98-107) Carbon Dioxide Level 29 mmol/L (21-32) Anion Gap 10 (6-14) Blood Urea Nitrogen 19 mg/dL (8-26) Creatinine 1.2 mg/dL (0.7-1.3) Estimated GFR (Cockcroft-Gault) 63.3 BUN/Creatinine Ratio 16 (6-20) Glucose Level 64 mg/dL (70-99) L Lactic Acid Level 1.5 mmol/L (0.4-2.0) Calcium Level 9.8 mg/dL (8.5-10.1) Total Bilirubin 0.5 mg/dL (0.2-1.0) Aspartate Amino Transferase (AST) 23 U/L (15-37) Alanine Aminotransferase (ALT) 29 U/L (16-63) Alkaline Phosphatase 64 U/L (46-116) Total Protein 7.7 g/dL (6.4-8.2) Albumin 4.0 g/dL (3.4-5.0) Albumin/Globulin Ratio 1.1 (1.0-1.7) Laboratory Tests 04/28/18 15:55 Laboratory Tests 04/28/18 15:55 EKG EKG [] Radiology/Procedures Radiology/Procedures [] Course & Med Decision Making Course & Med Decision Making Pertinent Labs and Imaging studies reviewed. (See chart for details) d/w Joelle Zhang (patient's PCP). She is agreeable to continuing patient on doxycycline and would like to see him in the clinic in a couple of days. Plan: doxycycline rx, f/u with Jesse, return precautions reviewed [employer] Disclaimer Jorge Disclaimer This electronic medical record was generated, in whole or in part, using a voice recognition dictation system. Departure Departure Impression: Primary Impression: Cellulitis of right knee Disposition: 01 HOME, SELF-CARE Condition: GOOD Referrals: JOELLE ZHANG [employer] (PCP) Patient Instructions: Cellulitis Scripts Doxycycline Hyclate (DOXYCYCLINE HYCLATE) 100 Mg Capsule 1 CAP PO BID, #14 CAP Prov: KAY URIARTE APRN 04/28/18 KAY URIARTE APRN Apr 28, 2018 16:03
[2018-04-28 16:09] LABS: BASO # 0.1 x10^3/uL (0.0-0.2); BASO % 1 % (0-3); EOS # 0.2 x10^3/uL (0.0-0.7); EOS % 3 % (0-3); HEMATOCRIT 41.8 % (39.0-53.0); LYMPH # 1.6 x10^3/uL (1.0-4.8); LYMPH % 21 % (24-48); MEAN CORPUSCULAR HEMOGLOBIN 31 pg (25-35); MEAN CORPUSCULAR HGB CONC 34 g/dL (31-37); MEAN CORPUSCULAR VOLUME 92 fL (79-100); MONO # 0.9 x10^3/uL (0.0-1.1); MONO % 11 % (0-9); NEUT # 5.1 x10^3uL (1.8-7.7); NEUT % 64 % (31-73); PLATELET COUNT 228 x10^3/uL (140-400); RED BLOOD COUNT 4.56 x10^6/uL (4.30-5.70); RED CELL DISTRIBUTION WIDTH 14.6 % (11.5-14.5); WHITE BLOOD COUNT 7.9 x10^3/uL (4.0-11.0)
[2018-04-28 16:30] VITALS: BP 120/71
[2018-04-28 16:34] LABS: CALCIUM 9.8 mg/dL (8.5-10.1); CREATININE 1.2 mg/dL (0.7-1.3); GFR 63.3
[2018-04-28 16:37] LABS: ALBUMIN/GLOBULIN RATIO 1.1 (1.0-1.7); TOTAL BILIRUBIN 0.5 mg/dL (0.2-1.0); TOTAL PROTEIN 7.7 g/dL (6.4-8.2)
[2018-04-28] MEDS ORDERED: DOXY100C2 PO (16:43)
== END 2018-04-28 17:00 | disposition home or self-care (01) ==
LOC: ER 14:42
DX: L03.115 Cellulitis of right lower limb (principal); Z88.5 Allergy status to narcotic agent
CPT/HCPCS: 36415; 80053; 83605; 85025; 87040; 99284

== ENCOUNTER → 2018-06-24 | Day surgery (SDC) | payer OTHER ==
[~2018-06-24] MED LIST changes: +BUPIVAC MPF-EPI 0.5%-1:200000 30 ML VIAL. ONE; +DEXAMETHASONE SOD PHOS 20 MG/5 ML VIAL. ONE; +DOXY100C2 PO; -HYDR-2762 PO; +HYDR-2765 PO; +HYDR-3164 PO; -HYDR-971 PO; +HYDROmorphone 2 MG/ML VIAL IV PRN; +IV RINGERS,LACTATED 1000ML 1,000 ML IV SCH; +KETOROLAC 30 MG/ML INJ FOR OR. INJ ONE; +LIDOCAINE 1% PF 2 ML VIAL. ID PRN; +MORPHINE SULFATE 2 MG/ML VIAL. IV PRN; +ONDANSETRON PF 4 MG/2 ML VIAL. IV PRN; +ONDANSETRON PF 4 MG/2 ML VIAL. ONE; +PROCHLORPERAZINE 10 MG/2 ML VIAL. IV PRN; +PROPOFOL 20 ML IV ONE; +SEVOFLURANE 16 TO 30 MINUTES. IH ONE; +SEVOFLURANE > 120 MINUTES. IH ONE; +fentaNYL PF VIAL 100 MCG/2 ML VIAL IV PRN; +fentaNYL PF VIAL 100 MCG/2 ML VIAL ONE
[2018-06-24 11:07] LABS: BASO # 0.1 x10^3/uL (0.0-0.2); BASO % 1 % (0-3); EOS # 0.1 x10^3/uL (0.0-0.7); EOS % 2 % (0-3); HEMOGLOBIN 14.5 g/dL (13.0-17.5); LYMPH # 1.4 x10^3/uL (1.0-4.8); LYMPH % 23 % (24-48); MEAN CORPUSCULAR HEMOGLOBIN 31 pg (25-35); MEAN CORPUSCULAR HGB CONC 34 g/dL (31-37); MEAN CORPUSCULAR VOLUME 92 fL (79-100); MONO # 0.7 x10^3/uL (0.0-1.1); MONO % 12 % (0-9); NEUT # 3.8 x10^3uL (1.8-7.7); NEUT % 62 % (31-73); PLATELET COUNT 175 x10^3/uL (140-400); RED CELL DISTRIBUTION WIDTH 14.5 % (11.5-14.5); WHITE BLOOD COUNT 6.2 x10^3/uL (4.0-11.0)
--- NOTE | 2018-06-24 11:23 | DISCH ---
DISCHARGE INSTRUCTIONS Condition on Discharge Condition on Discharge: Stable Activity After Discharge Activity Instructions for Disc: Other, see below (no kneeling on right knee expected next 3 weeks) Weight Bearing Status after Di: As tolerated Diet after Discharge Diet after Discharge: Regular Wound Incision Care Wound/Incision Care: Ice to area for comfort, Change dressing (May remove dressings in 3-4 days if no drainage made just dressed with a Band-Aid and compression with neoprene knee sleeve) Contacting the DR. after DC Call your doctor for: Concerns you may have Follow-Up Follow up with: Artur 2 weeks LUKASZ VILLELA MD Jun 24, 2018 11:23
[2018-06-24 12:31] VITALS: BP 116/81
--- NOTE | 2018-06-24 12:39 | PDOC4 ---
Operative Note Operative Note Date of surgery: 06/24/2018 Preoperative diagnosis: Right knee prepatellar bursitis, possibly infectious, chronic puncture injury Postoperative diagnosis: Right knee prepatellar bursitis, chronic inflammatory changes, unlikely infection Operative procedure: Irrigation debridement right knee prepatellar bursa Surgeon: Artur Anesthesia: Gen. Estimated blood loss: 30 mL Complications: None Specimens: Culture of fluid and prepatellar bursal tissue sent intraoperatively Operative indications: Please refer to my preoperative clinic note for detailed history and note that Mr. 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 We talked about the possibility of opening up exploring taking cultures cleaning out the bursa and treating it with closure and avoiding pressure on the area for the next 3 weeks of healing process and putting some compression on the area so any fluid does not reaccumulate. All his questions were answered he wishes to proceed with surgical evaluation and treatment. Operative text: Patient was identified procedure verified patient placed in the supine position on the operative table. After adequate amounts of general anesthesia were administered the right lower extremity was prepped and draped in standard sterile fashion with a thigh tourniquet. Tourniquet was not inflated. After timeout was performed patient procedure identified and verified a longitudinal midline incision was made about a centimeter and a half proximal and distal to the puncture wound. No foreign body was noted and apparently normal bursal fluid was observed and return as it was not purulent or cloudy in nature however there was significant chronic bursal tissue inflammation. Some fluid and excised inflammatory tissue were sent for intraoperative culture. The remaining bursal tissue was thoroughly debrided sharply with a rongeur skin and subcutaneous tissue likewise sharply excised in the area of the puncture incision to remove any potential devitalized tissue or foreign material. Bleeding points were controlled by electrocautery. Closure accomplished with nylon in a vertical mattress fashion. Sterile dressings were applied followed by a August wrap for gentle compression. Patient was returned recovery room in stable condition having tolerated procedure well LUKASZ VILLELA MD Jun 24, 2018 12:39
== END | disposition home or self-care (01) ==
LOC: SURG 09:08
PROVIDERS: ATTEND Orthopaedic Surgery
DX: M70.41 Prepatellar bursitis, right knee (principal); M06.9 Rheumatoid arthritis, unspecified; M17.11 Unilateral primary osteoarthritis, right knee; Z79.899 Other long term (current) drug therapy; Z90.49 Acquired absence of other specified parts of digestive tract; Z98.890 Other specified postprocedural states; Z96.642 Presence of left artificial hip joint; Z72.89 Other problems related to lifestyle
CPT/HCPCS: 27340; 36415; 85025; 87071; 87075; A7015; J0690; J1100; J1885; J2405; J2704; J3010; J3490

== ENCOUNTER 2018-07-17 11:23 | Day surgery (SDC) | payer OTHER ==
[~2018-07-17 11:23] MED LIST changes: -BUPIVAC MPF-EPI 0.5%-1:200000 30 ML VIAL. ONE; -DEXAMETHASONE SOD PHOS 20 MG/5 ML VIAL. ONE; -KETOROLAC 30 MG/ML INJ FOR OR. INJ ONE; -ONDANSETRON PF 4 MG/2 ML VIAL. ONE; -PROPOFOL 20 ML IV ONE; -SEVOFLURANE 16 TO 30 MINUTES. IH ONE; -SEVOFLURANE > 120 MINUTES. IH ONE; -fentaNYL PF VIAL 100 MCG/2 ML VIAL ONE
[2018-07-17] MEDS ORDERED: LIDOCAINE 2% PF Vial for OR 5 ML VIAL. ONE (16:08)
[2018-07-17] MEDS ORDERED: DEXAMETHASONE SOD PHOS 20 MG/5 ML VIAL. ONE (16:08)
[2018-07-17] MEDS ORDERED: PROPOFOL 20 ML IV ONE (16:08)
[2018-07-17] MEDS ORDERED: fentaNYL PF VIAL 100 MCG/2 ML VIAL ONE ×2 (16:08→17:12)
[2018-07-17] MEDS ORDERED: ONDANSETRON PF 4 MG/2 ML VIAL. ONE (16:08)
[2018-07-17] MEDS ORDERED: MIDAZOLAM HCL/PF 2 MG/2 ML VIAL. ONE (16:08)
[2018-07-17] MEDS ORDERED: FAMOTIDINE 20 MG/2 ML VIAL ONE (16:08)
[2018-07-17] MEDS ORDERED: HYDROcodone/APAP 5/325MG 1 TAB TABLET PO ONE (18:00)
[2018-07-17 18:13] VITALS: BP 153/78
--- NOTE | 2018-07-17 18:42 | DISCH ---
DISCHARGE INSTRUCTIONS Condition on Discharge Condition on Discharge: Stable Activity After Discharge Activity Instructions for Disc: Other, see below Weight Bearing Status after Di: As tolerated Diet after Discharge Diet after Discharge: Regular Wound Incision Care Wound/Incision Care: Ice to area for comfort, Change dressing (May remove dressing in 3 days may then shower, no soaking) Contacting the DRMildred after DC Call your doctor for: Concerns you may have Follow-Up Follow up with: Artur 1 week LUKASZ VILLELA MD Jul 17, 2018 18:42
[2018-07-17] MEDS ORDERED: CEPH-264 PO (18:49)
[2018-07-17] MEDS ORDERED: HYDR-3164 PO (18:49)
--- NOTE | 2018-07-17 20:37 | PDOC4 ---
Operative Note Operative Note Date of surgery: 07/17/2018 Preoperative diagnosis: Persistent drainage of right knee prepatellar bursa Postoperative diagnosis: Same with suspected infection Operative procedure: Debridement of right knee prepatellar bursa skin edges subcutaneous tissue and primary closure Surgeon: Artur Anesthesia: GenMildred Estimated blood loss: 10 mL Complications: None Specimens: Intraoperative tissue from prepatellar bursa sent for culture Operative indications: Mr. 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 He had initially undergone a previous irrigation debridement procedure of the prepatellar bursa the end of May for some persistent drainage that it occurred in a similar area of the knee for several weeks in duration. Cultures obtained at the initial time of debridement revealed no significant white blood cells on Gram stain and negative aerobic and anaerobic cultures. He was not placed on antibiotics at that time and initially appeared to have good healing but developed some ongoing drainage that was not symptomatic really no redness or erythema. It worsened over time to include ongoing drainage and opened up somewhat to about the diameter of a pencil eraser. Given the concern for possible infection and wanting to avoid any worsening or possible knee joint involvement I suggested the recommendation of operative exploration with irrigation debridement and repeat cultures. I discussed the rationale for this with him including the history that is initial cultures were negative but a path out with drainage can potentially be a path in of skin bacteria into the bursa. All his questions were answered and he does agree that operative treatment is reasonable based on the ongoing course and agrees to proceed with surgical evaluation and treatment. Operative text: Patient was identified procedure verified patient placed in the supine position on the operating table. After adequate amounts of general anesthesia were administered the right lower extremity was prepped and draped in standard sterile fashion. After timeout was performed patient procedure identified and verified skin edges and subcutaneous tissue were excised and a fishmouth fashion around the skin defect of about 6-7 mm round. Thorough sharp debridement of the bursa with a rongeur was accomplished and some apparently involved tissue was sent along with fluid for culture intraoperatively. After extensive bursal debridement was carried out bleeding points were controlled by electrocautery and thorough irrigation carried out with normal saline solution with pulse lavage a total of approximately 3 L. Given that primary skin closure was able to be obtained subcutaneous closure accomplished with buried PDS suture skin closure with 2-0 nylon suture partly in a tension relieving fashion to get excellent skin apposition and a vertical mattress fashion to achieve good apposition of wound edges with slight eversion. Sterile compressive dressings were applied toes are noted be warm pink find deflation of tourniquet patient was returned to recovery room in stable condition having tolerated procedure well LUKASZ VILLELA MD Jul 17, 2018 20:37
== END 2018-07-17 19:05 | disposition home or self-care (01) ==
LOC: SURG 11:23
PROVIDERS: ATTEND Orthopaedic Surgery
DX: M70.41 Prepatellar bursitis, right knee (principal); M19.90 Unspecified osteoarthritis, unspecified site; Z88.6 Allergy status to analgesic agent; Z79.899 Other long term (current) drug therapy; Z98.890 Other specified postprocedural states; Z90.49 Acquired absence of other specified parts of digestive tract
CPT/HCPCS: 27340; 87071; 87075; A7015; J0690; J1100; J2001; J2250; J2405; J2704; J3010; J3490; J7030; J7120; A4461